=== PATIENT | male | born 1970 | race Caucasian/White ===

== ENCOUNTER 2018-05-22 01:06 | Emergency (ER) | payer BC ==
[2018-05-22 01:21] VITALS: BP 183/108
[2018-05-22] MEDS ORDERED: traMADol HCL 50 MG TABLET PO ONE (01:24)
[2018-05-22] MEDS ORDERED: CLINDAMYCIN HCL 150 MG CAPSULE PO ONE (01:24)
--- NOTE | 2018-05-22 01:26 | ED Physician Documentation ---
Sore Throat/Dental Pain - HISTORIAN Historian: patient - HPI Stated Complaint: dental pain Chief Complaint: Dental Pain Additional Information: Patient presents to ED with a 2 day history of worsening right lower dental pain. 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 Onset: days ago (2) Context: Fractured Tooth Associated Symptoms: denies: fever, chills Worsened By: cold - ROS CONST: denies: no problems CVS/RESP: denies: shortness of breath GI/: denies: nausea, vomiting MS/SKIN/LYMPH: denies: muscle aches NEURO/PSYCH: denies: headache - PAST HX Past History: none Other History: none Allergies/Adverse Reactions: Allergies Allergy/AdvReac Type Severity Reaction Status Date / Time No Known Allergies Allergy Verified 05/22/18 01:21 Home Medications: Ambulatory Orders Medication Instructions Recorded Oxycodone HCl/Acetaminophen 1 tab PO Q8 PRN 05/22/18 [Oxycodone-Acetaminophen 10-325] Penicillin V Potassium [Pen V K] 500 mg PO TID #30 tablet 05/22/18 - SOCIAL HX Smoking History: cigarettes Alcohol Use: none Drug Use: none - FAMILY HX Family History: No - VITAL SIGNS Vital Signs: Vital Signs Temp Pulse Resp BP Pulse Ox 98.2 F 85 20 183/108 96 05/22/18 01:17 05/22/18 01:17 05/22/18 01:17 05/22/18 01:17 05/22/18 01:17 - REVIEWED ASSESSMENTS Nursing Assessment Reviewed: Yes Vitals Reviewed: Yes ED Results Lab/Radiology - Orders Orders: ED Orders Category Date Time Status Clindamycin HCl [Cleocin] Med 05/22/18 01:24 Once 300 mg PO NOW ONE traMADol HCL [Ultram] Med 05/22/18 01:24 Once 50 mg PO NOW ONE Dental Pain Physical Exam - EXAM General Appearance: no acute distress, alert Head/Neck: mandibular swelling (R) Eyes: PERRL Mouth/Throat: lips nml, gums nml, widespread dental decay, other (right lower molar fracture with erythema around tooth) Respiratory: no resp. distress, breath sounds nml CVS: reg. rate & rhythm, heart sounds nml Abdomen: soft. No: tenderness Extremities: non-tender Skin: warm/dry Neuro/Psych: none Discharge Clincal Impression: Pain, dental Prescriptions: Penicillin V Potassium [Pen V K] 500 mg PO TID #30 tablet Additional Instructions: 1. Take antibiotics until gone 2. Follow up with Dentist as soon as possible 3. Return to ER for new or worsening symptoms Condition: Stable Decision to Admit: NO Date of Decison to Admit: 05/22/18 Decision Time: 01:33
== END 2018-05-22 01:36 ==
LOC: ED 01:06
DX: K08.89 Other specified disorders of teeth and supporting structures (principal); Z72.0 Tobacco use
CPT/HCPCS: 99283; A9270

== ENCOUNTER 2018-11-25 22:14 | Emergency (ER) | payer BC ==
--- NOTE | 2018-11-25 22:25 | ED Physician Documentation ---
Headache - HISTORIAN Historian: patient - HPI Stated Complaint: headache Chief Complaint: Headache Additional Information: Patient presents to ED with headache. Patient states the pain is throbbing, 8/10, located at both temples. He does not have headaches and has not experienced pain like this before. He take Percocet 10/325mg every 8 hours for chronic foot pain and this has not helped. Blood pressure is elevated 165/105. 2348 Patient reports diarrhea all day long. Onset: hours (12) Timing: gradual New Gradual Onset: Yes Exposure To: none Severity: severe Quality: pounding Associated Symptoms: sensitivity to light, nausea. denies: fever, chills Exacerbated By: light, noise - ROS NEURO/PSYCH: denies: confusion EYES/ENT: denies: sinus pain CVS/RESP: denies: chest pain, shortness of breath GI/: diarrhea MS/SKIN/LYMPH: denies: back pain - PAST HX Medical History: no pertinent history Surgical History: noncontributory Allergies/Adverse Reactions: Allergies Allergy/AdvReac Type Severity Reaction Status Date / Time Penicillins Allergy Unknown Verified 11/25/18 22:29 Home Medications: Ambulatory Orders Medication Instructions Recorded Oxycodone HCl/Acetaminophen 1 tab PO Q8 PRN 05/22/18 [Oxycodone-Acetaminophen 10-325] Ciprofloxacin HCl [Cipro] 500 mg PO BID #14 tablet 11/26/18 metroNIDAZOLE [Flagyl] 500 mg PO Q6H #40 tablet 11/26/18 - SOCIAL HX Smoking History: non-smoker Alcohol Use: other (daily) Drug Use: none - Family HX Family History: none - VITAL SIGNS Vital Signs: Vital Signs Temp Pulse Resp BP Pulse Ox 100.2 F H 112 H 18 174/104 96 11/25/18 22:22 11/25/18 22:22 11/25/18 22:22 11/25/18 22:22 11/25/18 22:22 - REVIEWED ASSESSMENTS Nursing Assessment Reviewed: Yes Vitals Reviewed: Yes Progress - Progress Progress: 2320 Patient states pain is 4/10 now. BP 147/97. ED Results Lab/Radiology - Lab Results Lab Results: wbc 17.6, Hgb 14.3, Plt 425 Na 134, K+ 3.2, Chl 101, CO2 22, Glucose 178, Bun 10, Cr 0.87, LFTs wnl - Radiology Radiology Impressions: Report Submission Date: Nov 25, 2018 11:00:51 PM CDT Patient Study Name: LILIAM AYALA Date: Nov 25, 2018 10:34:36 PM CDT Modality Type: CT\SR Gender: M Description: CT BRAIN W/O CONTRAST : 74 Institution: [facility] Physician: EMILY BECKER CT brain noncontrast Date of study: 11/25/2018. CLINICAL HISTORY: HEADACHE SINCE 1699 TONIGHT TECHNIQUE: 5 mm contiguous axial images of the brain, noncontrast. FINDINGS: There is no evidence of intracranial mass effect, hemorrhage, or acute hydrocephalus. The lateral ventricles are symmetrical and the 4th ventricle is midline without shift. No acute brain parenchymal changes or extra-axial fluid collections are identified. The posterior fossa contents are within normal limits. The calvarium is intact. The visualized sinuses and mastoid air cells are clear. IMPRESSION: No acute intracranial process. Electronically signed on Nov 25, 2018 11:00:51 PM CDT by: Edgar Redman - Orders Orders: ED Orders Category Date Time Status Place IV Lock 1T Care 11/25/18 22:28 Active CHEST 2VIEW [RAD] Stat Exams 11/25/[address] BRAIN W/O CONTRAST Stat Exams 11/25/18 Completed CBC/PLATELET/DIFF Routine Lab 11/25/18 22:47 Received CMP [CMP] Routine Lab 11/25/18 22:47 Received 0.9 % Sodium Chloride [Normal Saline] 1,000 ml Med 11/25/18 22:35 Active IV Q1H Ciprofloxacin HCl [Cipro] Med 11/25/18 23:49 Once 500 mg PO NOW ONE Ketorolac Tromethamine [Toradol] Med 11/25/18 22:29 Once 30 mg IV NOW ONE Metoprolol Tartrate [Lopressor] Med 11/25/18 22:29 Once 5 mg IV NOW ONE Ondansetron HCl/Pf [Zofran] Med 11/25/18 22:35 Once 4 mg IVP NOW ONE Potassium Chloride [Klor-Con M20] Med 11/25/18 23:49 Once 20 meq PO NOW ONE metroNIDAZOLE [Flagyl] Med 11/25/18 23:49 Once 500 mg PO NOW ONE Headache Physical Exam - EXAM General Appearance: no acute distress, alert EENT: PERRL Neck: supple Respiratory: no resp distress, chest non-tender, breath sounds normal CVS: reg. rate & rhythm, heart sounds nml Abdomen: non-tender Skin: color nml Extremitites: non-tender - NEURO/PSYCH Higher Functions: alert, oriented x3, nml speech, mood/affect nml Cranial: nml as tested Cerebellar: nml as tested Sensorimotor: motor nml, sensation nml Discharge Clincal Impression: Colitis Prescriptions: Ciprofloxacin HCl [Cipro] 500 mg PO BID #14 tablet metroNIDAZOLE [Flagyl] 500 mg PO Q6H #40 tablet Referrals: Primary Doctor,No [Primary Care Provider] - 2 Days Additional Instructions: 1. Take antibiotic until gone 2. Drink plenty of fluids to maintain proper hydration. Avoid caffeine, soda, alcohol and energy drinks 3. Ibuprofen 600mg every 8 hours as needed for pain 4. Follow up with PCP within 1 week 5. Return to ER for new or worsening symptoms Condition: Stable Disposition: 01 HOME, SELF-CARE Decision to Admit: NO Date of Decison to Admit: 11/26/18 Decision Time: 00:17
[2018-11-25] MEDS ORDERED: KETOROLAC TROMETHAMINE 30 MG/1ML VIAL IV ONE (22:29)
[2018-11-25] MEDS ORDERED: METOPROLOL TARTRATE 5 MG/5 ML VIAL IV ONE (22:29)
[2018-11-25] MEDS ORDERED: 0.9 % SODIUM CHLORIDE 1,000 ML IV ONE (22:35)
[2018-11-25] MEDS ORDERED: ONDANSETRON HCL/PF 4 MG/ 2ML VIAL IVP ONE (22:35)
--- NOTE | 2018-11-25 23:04 | Diagnostic Imaging Report ---
PATIENT MR#: [id number] PATIENT PATIENT NAME: LILIAM AYALA DATE OF : 1970 REFERRING PHYSICIAN: Mindy Trotter EXAM DATE: 11/25/2018 ACCESSION NUMBER: [id number] EXAM DESCRIPTION: CT BRAIN W/O CONTRAST CT brain noncontrast Date of study: 11/25/2018. CLINICAL HISTORY: HEADACHE SINCE 1700 TONIGHT TECHNIQUE: 5 mm contiguous axial images of the brain, noncontrast. FINDINGS: There is no evidence of intracranial mass effect, hemorrhage, or acute hydrocephalus. The lateral mery tricles are symmetrical and the 4th ventricle is midline without shift. No acute brain parenchymal changes or ext ra-axial fluid collections are identified. The posterior fossa contents are within normal limits. The calvarium is intact. The visualized sinuses and mastoid air cells are clear. IMPRESSION: No acute intracranial process. Read by: Dr. Edgar Redman Transcribed by: Transcribed Date: Electronically signed by: Dr. Edgar Redman Date signed: 11/25/2018 11:03:34 PM
--- NOTE | 2018-11-25 23:41 | Diagnostic Imaging Report ---
PATIENT MR#: [id number] PATIENT PATIENT NAME: LILIAM AYALA DATE OF : 1970 REFERRING PHYSICIAN: Mindy Trotter EXAM DATE: 11/25/2018 ACCESSION NUMBER: [id number] EXAM DESCRIPTION: CHEST 2VIEW PA and lateral chest Clinical history: Cough. Findings: Examination of the chest in PA and lateral views demonstrates the lungs to be clear. Card iovascular and mediastinal silhouettes within normal limits. The bony thorax is intact. Impression: 1. Negative chest. Read by: Dr. Edgar Redman Transcribed by: Transcribed Date: Electronically signed by: Dr. Edgar Redman Date signed: 11/25/2018 11:40:34 PM
[2018-11-25] MEDS ORDERED: POTASSIUM CHLORIDE 20 MEQ TABLET.ER PO ONE (23:49)
[2018-11-25] MEDS ORDERED: metroNIDAZOLE 500 MG TABLET PO ONE (23:49)
[2018-11-26 00:29] VITALS: BP 145/89
[2018-11-26 06:59] LABS: BASOPHILS % 0.7 % (0.0-1.5)
[2018-11-26 07:00] LABS: eGFR (Non-African) > 60
== END 2018-11-26 00:24 | disposition home or self-care (01) ==
LOC: ED 22:14
DX: K52.9 Noninfective gastroenteritis and colitis, unspecified (principal)
CPT/HCPCS: 70450; 71046; 80053; 85025; 96361; 96374; 96375; 99284; A9270; J1885; J2405; J3490; J7030; S1016

== ENCOUNTER 2019-01-31 16:20 | Emergency (ER) | payer BC ==
--- NOTE | 2019-01-31 16:43 | ED Physician Documentation ---
Sore Throat/Dental Pain - HISTORIAN Historian: patient - HPI Chief Complaint: Sore Throat Additional Information: 49 year old male presents with c/o sore throat, cough, congestion, and "just not feeling well'. He took his last dose of Tamiflu today; his had the flu so patient was also treated. He states that it did not help at all. Onset: days ago Context: Possible Infection Associated Symptoms: sore throat, moderate Worsened By: nothing - ROS CONST: recent illness CVS/RESP: none GI/: denies: nausea, vomiting MS/SKIN/LYMPH: muscle aches NEURO/PSYCH: headache - PAST HX Past History: none Other History: other (HTN but wont take meds for it, depression) Immunizations: UTD. denies: influenza Allergies/Adverse Reactions: Allergies Allergy/AdvReac Type Severity Reaction Status Date / Time Penicillins Allergy Unknown Verified 11/25/18 22:29 Home Medications: Ambulatory Orders Medication Instructions Recorded Oxycodone HCl/Acetaminophen 1 tab PO Q8 PRN 05/22/18 [Oxycodone-Acetaminophen 10-325] CiproFLOXacin HCL [Cipro] 500 mg PO BID #14 tablet 11/26/18 metroNIDAZOLE [Flagyl] 500 mg PO Q6H #40 tablet 11/26/18 - SOCIAL HX Smoking History: greater than 1 pack/day Alcohol Use: occasionally Drug Use: none - FAMILY HX Family History: No - VITAL SIGNS Vital Signs: Vital Signs Temp Pulse Resp BP Pulse Ox 145/89 11/26/18 00:28 - REVIEWED ASSESSMENTS Nursing Assessment Reviewed: Yes Vitals Reviewed: Yes ED Results Lab/Radiology - Orders Orders: ED Orders Category Date Time Status Rapid Strep [GRP A STREP SCREEN] Stat Lab 01/31/19 Ordered Sore throat Physical Exam - EXAM General Appearance: alert, mild distress Head/Neck: head nml inspection, neck nml inspection Eyes: eyes nml inspection, PERRL Mouth/Throat: lips nml, gums nml, pharynx nml, pharyngeal erythema Ear/Nose: nml inspection Respiratory: breath sounds nml CVS: heart sounds nml Abdomen: soft, normal bowel sounds Extremities: nml ROM Skin: warm/dry, normal color Neuro/Psych: oriented x3, mood/affect nml Discharge Clincal Impression: Upper respiratory infection, Sore throat Referrals: Primary Doctor,No [Primary Care Provider] - 2 Days Additional Instructions: Take antibiotic as directed (Jenae) Albuterol inhaler- 2 puffs every 4-6 hours as needed for shortness of breath/wheezing (scripts called to [facility]) Warm salt water gargles 4 times a day Chloraseptic spray as needed Increase water intake Stop smoking Follow up with PCP for re-evaluation Condition: Good Decision to Admit: NO Decision Time: 16:50
[2019-01-31 17:01] VITALS: BP 161/101
== END 2019-01-31 16:49 ==
LOC: ED 16:20
DX: J06.9 Acute upper respiratory infection, unspecified (principal); F17.210 Nicotine dependence, cigarettes, uncomplicated
CPT/HCPCS: 87070; 87880; 99282